=== PATIENT | female | born 1985 | race Caucasian/White ===

== ENCOUNTER 2021-05-31 22:05 | Emergency (ER) | payer SELFPAY ==
[~2021-05-31] VITALS: Ht 157.5 cm; Wt 62.0 kg
[2021-05-31 22:30] VITALS: BP 109/57
[2021-06-01] MEDS ORDERED: CEPH500C2 MT (00:09)
[2021-06-01] MEDS ORDERED: SULF1TAB48 MT (00:09)
[2021-06-01] MEDS ORDERED: NAPR-1176 MT (00:09)
[2021-06-01] MEDS ORDERED: ACET-2708 MT (00:09)
[2021-06-01] MEDS ORDERED: IBUPROFEN 400MG TABLET PO ONE (00:15)
[2021-06-01] MEDS ORDERED: ACETAMINOPHEN 325MG TABLET PO ONE (00:15)
== END 2021-06-01 01:01 | disposition home or self-care (01) ==
LOC: ER 22:05
DX: L03.317 Cellulitis of buttock (principal)
CPT/HCPCS: 81025; 99283